=== PATIENT | female | born 1945 | race Native Hawaiian/Other Pacific Islander ===

== ENCOUNTER 2021-05-16 11:03 | Outpatient (CLI) | payer MEDICARE, OTHER ==
[2021-05-16 13:16] LABS: BASOPHILS # (AUTO) 0.1 K/uL (0.0-0.2); BASOPHILS % (AUTO) 0.9 % (0.0-2.0); EOSINOPHILS % (AUTO) 6.9 % (0.0-6.0); HEMATOCRIT 37 % (33-45); HEMOGLOBIN 12.1 g/dL (11.5-14.8); LYMPHOCYTES # (AUTO) 2.2 K/uL (0.8-4.8); MEAN CORPUSCULAR HGB CONC 33 g/dl (31.0-36.0); MEAN CORPUSCULAR VOLUME 86 fL (82-100); MONOCYTES # (AUTO) 0.6 K/uL (0.1-1.30); NEUTROPHILS % (AUTO) 59.2 % (43.0-81.0); PLATELET COUNT (AUTO) 343 K/uL (150-450); RED BLOOD CELL COUNT(AUTO) 4.28 MIL/uL (4.0-5.2); WHITE BLOOD COUNT (AUTO) 8.5 K/uL (4.3-11.0)
[2021-05-16 13:57] LABS: ALBUMIN 3.5 g/dL (3.4-5.0); BILIRUBIN,TOTAL 0.5 mg/dL (0.2-1.0); CALCIUM, SERUM 8.8 mg/dL (8.5-10.1); CREATININE 1.3 mg/dL (0.6-1.3); TOTAL PROTEIN, SERUM 8.1 g/dL (6.4-8.2)
[2021-05-16 14:39] LABS: POTASSIUM 4.2 mmol/L (3.5-5.1)
== END 2021-05-16 23:59 | disposition home or self-care (01) ==
LOC: LAB 11:03
PROVIDERS: ATTEND Obstetrics & Gynecology
DX: Z01.818 Encounter for other preprocedural examination (principal); Z20.822 Contact with and (suspected) exposure to COVID-19
CPT/HCPCS: 36415; 71045; 80051; 80053; 83036; 85025; 85730; C9803; U0003

== ENCOUNTER 2021-05-20 07:53 | Day surgery (SDC) | payer MEDICARE, OTHER ==
--- NOTE | 2021-05-20 08:51 | NUR ---
RT STAT EKG DONE, NORMAL ECG RESULTS GIVEN TO RN AT BEDSIDE.
[2021-05-20] MEDS ORDERED: MIDAZOLAM HCL 2 MG/2ML VIAL ONE (09:29)
[2021-05-20] MEDS ORDERED: ROCURONIUM BROMIDE 50 MG/5 ML ONE (09:29)
[2021-05-20] MEDS ORDERED: CLINDAMYCIN 900 MG/6 ML VIAL ONE (09:33)
[2021-05-20] MEDS ORDERED: FERRIC SUBSULFATE 8 GM/VIAL VIAL TP ONE (10:30)
== END 2021-05-20 12:35 | disposition home or self-care (01) ==
LOC: DS 07:53
PROVIDERS: ATTEND Obstetrics & Gynecology
DX: N95.0 Postmenopausal bleeding (principal); I10 Essential (primary) hypertension; E11.9 Type 2 diabetes mellitus without complications; Z98.890 Other specified postprocedural states; Z79.899 Other long term (current) drug therapy
CPT/HCPCS: 57522; 88307; 93005 ×2; A6253; A6402; J1100; J2250; J2405; J2704; J3490 ×3; J7030